=== PATIENT | female | born 1990 | race Caucasian/White ===

== ENCOUNTER 2018-07-21 01:19 | Emergency (ER) | payer MEDICAID ==
[2018-07-21 01:24] VITALS: BP 124/75
[2018-07-21] MEDS ORDERED: LIDOCAINE 4% TRANSPARENT DRESSING 5 GM KIT TP ONE (02:23)
[2018-07-21] MEDS ORDERED: DIPH/PERTUSS(ACELL)/TETANUS VAC/PF 0.5 ML SYR (>=10YO) IM ONE (02:23)
[2018-07-21] MEDS ORDERED: IBUPROFEN 600 MG TABLET PO ONE (02:23)
[2018-07-21] MEDS ORDERED: ACETAMINOPHEN 325 MG TABLET PO ONE (02:23)
[2018-07-21] MEDS ORDERED: LIDOCAINE 1%/EPINEPHRINE INJ 20 ML VIAL INJ ONE (02:23)
--- NOTE | 2018-07-21 02:56 | ER Document Report ---
ED General - General Chief Complaint: Laceration Stated Complaint: CUT LEG Time Seen by Provider: 07/21/18 02:06 Notes: Patient is a 27-year-old female without chronic medical problems who presents with a laceration to her right lower leg after striking it on a metal maycol. Patient describes a moderate to severe, throbbing, stinging, constant pain to the area. Nothing improves or worsens the pain. Bleeding controlled by direct pressure. No international injuries. No history of similar injuries in the past. Tetanus was last updated in 2011. Has not seen her primary care physician regarding today's concerns. Denies any focal weakness or numbness. - Related Data Allergies/Adverse Reactions: codeine [Codeine] Allergy (Severe, Verified 11/08/13 02:26) Anaphylaxis amoxicillin [Amoxicillin] Allergy (Verified 11/08/13 02:26) Penicillins Allergy (Verified 11/08/13 02:26) Sulfa (Sulfonamide Antibiotics) Allergy (Verified 07/21/18 03:02) Past Medical History - General Information source: Patient - Social History Smoking Status: Current Every Day Smoker Frequency of alcohol use: Social Drug Abuse: None Lives with: Family Family History: Reviewed & Not Pertinent, Thyroid Disfunction Patient has suicidal ideation: No Patient has homicidal ideation: No Pulmonary Medical History: Denies: Hx Tuberculosis Renal/ Medical History: Denies: Hx Peritoneal Dialysis Psychiatric Medical History: Reports: Hx Attention Deficit Hyperactivity Disorder Past Surgical History: Reports: Hx Cholecystectomy - Immunizations Immunizations up to date: Yes Hx Diphtheria, Pertussis, Tetanus Vaccination: Yes Review of Systems - Review of Systems Notes: Constitutional: Negative for fever. Eyes: Negative for visual changes. ENT: Negative for facial injury Cardiovascular: Negative for chest injury. Respiratory: Negative for shortness of breath. Gastrointestinal: Negative for abdominal injury. Genitourinary: Negative for genital injury Musculoskeletal: Positive for right leg injury Skin: Positive for laceration/abrasions. Neurological: Negative for head injury. Physical Exam - Vital signs Vitals: Temp Pulse Resp BP Pulse Ox 97.9 F 75 18 124/75 100 07/21/18 01:21 07/21/18 01:21 07/21/18 01:21 07/21/18 01:21 07/21/18 01:21 Interpretation: Normal Notes: PHYSICAL EXAMINATION: GENERAL: Well-appearing, well-nourished and in no acute distress. HEAD: Atraumatic, normocephalic. EYES: sclera anicteric, conjunctiva are normal. ENT: Moist mucous membranes. NECK: Normal range of motion LUNGS: Normal work of breathing HEART: 2+ DP pulses bilaterally EXTREMITIES: Full flexion extension at the level of the knee and ankle bilaterally no pitting or edema. No cyanosis. NEUROLOGICAL: No focal neurological deficits. Moves all extremities spontaneously and on command. PSYCH: Moderately anxious SKIN: Warm, Dry, normal turgor, 8 cm laceration over the right mid tibial surface with exposure of subcutaneous fat. Course - Re-evaluation Re-evalutation: 07/21/18 04:16 Patient presents with an 8 cm laceration over her right mid tibial surface after striking it on a metal cart. Laceration was irrigated and closed primarily. Neurovascularly intact. 2+ DP pulse. Full flexion and extension at the knee and ankle. X-ray without evidence of underlying bony injury or retained foreign body. Tetanus was updated. At this time will discharge with return precautions and follow-up recommendations. Verbal discharge instructions given a the bedside and opportunity for questions given. Medication warnings reviewed. Patient is in agreement with this plan and has verbalized understanding of return precautions and the need for primary care follow-up in the next 24-72 hours. - Vital Signs Vital signs: Temp Pulse Resp BP Pulse Ox 97.9 F 75 18 124/75 100 07/21/18 01:21 07/21/18 01:21 07/21/18 01:21 07/21/18 01:21 07/21/18 01:21 - Diagnostic Test Radiology reviewed: Image reviewed, Reports reviewed Radiology results interpreted by me: 07/21/18 04:17 Right tib-fib: No acute fracture or retained foreign body Procedures - Laceration/Wound Repair Right Leg Wound length (cm): 8 Wound's Depth, Shape: Superficial Laceration pre-procedure: Sterile PPE donned Anesthetic type: 1% Lidocaine w/epi Volume Anesthetic (mLs): 3 Wound explored: Clean Irrigated w/ Saline (mLs): 500 Wound Debrided: Minimal Wound Repaired With: Sutures Suture Size/Type: 4:0, Prolene Number of Sutures: 16 Layer Closure?: No Post-procedure wound care: Sterile dressing applied Post-procedure NV exam normal: Yes Complications: No Discharge - Discharge Clinical Impression: Laceration of right lower leg Qualifiers: Encounter type: initial encounter Qualified Code(s): S81.811A - Laceration without foreign body, right lower leg, initial encounter Right leg injury Qualifiers: Encounter type: initial encounter Qualified Code(s): S89.91XA - Unspecified injury of right lower leg, initial encounter Condition: Good Disposition: HOME, SELF-CARE Additional Instructions: Please return to your primary doctor, the ED, or an urgent care in 7 days for suture removal. Return immediately if you develop spreading redness around the wound, pus from the wound, worsening pain, or a fever of >100.4. Keep the area clean and dry. Wash gently with soap and water twice daily and cover with antibiotic ointment.
--- NOTE | 2018-07-21 03:19 | RADIOLOGY REPORT (SQ) ---
EXAM DESCRIPTION: XR TIBIA FIBULA 2 VIEWS COMPLETED DATE/TME: 07/21/2018 02:22 CLINICAL HISTORY: 27 years, Female, leg injury COMPARISON: None. NUMBER OF VIEWS: 3 TECHNIQUE: 3 views right tibia fibula LIMITATIONS: None. FINDINGS: Negative for acute fracture or dislocation. Soft tissue injury anteriorly. No radiopaque foreign body. Overlying bandaging material IMPRESSION: Soft tissue injury anteriorly copyright 2010 [employer]- All Rights Reserved
== END 2018-07-21 04:10 | disposition home or self-care (01) ==
LOC: ER 01:19
DX: S81.811A Laceration without foreign body, right lower leg, initial encounter (principal); W22.09XA Striking against other stationary object, initial encounter; F17.200 Nicotine dependence, unspecified, uncomplicated; Z88.6 Allergy status to analgesic agent; Z88.0 Allergy status to penicillin; Z88.2 Allergy status to sulfonamides; Z23 Encounter for immunization; Z90.49 Acquired absence of other specified parts of digestive tract
CPT/HCPCS: 99283; 90471; 73590; 90715; 12004; J3490 ×4